=== PATIENT | female | born 1945 | race African-American/Black ===

== ENCOUNTER 2024-03-23 01:17 | Inpatient (IN) | payer MEDICARE, MEDICAID ==
[~2024-03-23] VITALS: Ht 157.5 cm; Wt 95.5 kg
[2024-03-23] MEDS ORDERED: MORPHINE SULFATE 4 MG/ML INJ (FOR IV/IM USE) IV STA (01:47)
[2024-03-23 02:47] LABS: BASOPHILS % 2.5 % (0.0-2.0); EOSINOPHILS % 3.2 % (0.0-5.0); HEMATOCRIT. 35.9 % (36.0-48.0); LYMPHOCYTES % 39.1 % (20.0-50.0); MEAN CORPUSCULAR HEMOGLOBIN 25.1 pg (28.0-32.0); MEAN CORPUSCULAR HGB CONC 30.7 g/dL (31.0-37.0); MEAN CORPUSCULAR VOLUME 81.8 fL (81.0-99.0); MEAN PLATELET VOLUME 8.2 fl (7.4-10.4); MONOCYTES % 11.1 % (2.0-8.0); NEUTROPHILS % 44.1 % (40.0-76.0); PLATELET 305 x1000/uL (130-400); RED BLOOD CELL COUNT 4.39 mill/uL (4.2-5.4); RED CELL DISTRIBUTION WIDTH 20.2 % (11.6-14.6)
[2024-03-23 02:57] LABS: CHLORIDE 105 mEq/L (98-107); POTASSIUM 3.5 mEq/L (3.5-5.1); SODIUM 142 mEq/L (136-145)
[2024-03-23 02:58] LABS: CALCIUM 8.8 mg/dL (8.7-10.4); CARBON DIOXIDE 34 mEq/L (21-32)
[2024-03-23 03:03] LABS: CREATININE 0.8 mg/dL (0.6-1.0); GLUCOSE 115 mg/dL (70-105); TROPONIN I HIGH SENSITIVITY 17 ng/L (3.0-34); UREA NITROGEN BLOOD 12 mg/dL (9-23)
[2024-03-23 03:06] LABS: D-DIMER 0.86 mg/L FEU (<0.50); INR 1.1
[2024-03-23] MEDS: ONDANSETRON HCL 4MG/2ML INJ IV STA (03:38)
[2024-03-23] MEDS: DILTIAZEM HCL 5MG/ML 5ML VIAL IV NR (03:38)
[2024-03-23] MEDS: MORPHINE SULFATE 4 MG/ML INJ (FOR IV/IM USE) IV NR (03:39)
[2024-03-23] MEDS: ONDANSETRON HCL 4MG/2ML INJ IV NR (03:39)
[2024-03-23 04:53] LABS: TROPONIN I HIGH SENSITIVITY 17 ng/L (3.0-34)
[2024-03-23] MEDS ORDERED: IPRATROPIUM/ALBUTEROL 0.5-3(2.5)MG/3ML NEB NEB PRN (09:15)
[2024-03-23] MEDS ORDERED: ONDANSETRON HCL 4MG/2ML INJ IV PRN (09:15)
[2024-03-23] MEDS: DIGOXIN 500MCG/2ML AMP IV NR ×2 (10:30→14:00)
[2024-03-23] MEDS: FUROSEMIDE 40MG/4ML VIAL IVP SCH (10:30)
[2024-03-23] MEDS: ENOXAPARIN 120MG/0.8ML SYR SUBCUT SCH (10:31)
[2024-03-23] MEDS: DILTIAZEM HCL 30MG TABLET PO SCH (10:31)
[2024-03-23] MEDS: ACETAMINOPHEN 325MG TABLET PO PRN (10:32)
[2024-03-23 15:30] VITALS: BP 136/74; PULSE 113; RESP 18; TEMP 36.6404
[2024-03-23 16:00] VITALS: BP 104/73; PULSE 67; RESP 17; TEMP 36.6696; O2SAT 100
[2024-03-23] MEDS: DIGOXIN 250MCG TABLET PO SCH (18:00)
[2024-03-23 20:00] VITALS: BP 135/79; PULSE 100; RESP 19; TEMP 36.61404; O2SAT 100
[2024-03-23] MEDS ORDERED: DEXTROSE 50% WATER 50ML SYRINGE IV PRN (20:00)
[2024-03-23] MEDS ORDERED: NALOXONE HCL 0.4MG/ML VIAL IV PRN (20:15)
[2024-03-23] MEDS: INSULIN LISPRO 100 UNITS/ML SUBCUT SCH (21:00)
[2024-03-23] MEDS: BLOOD SUGAR DIAGNOSTIC STRIP TEST SCH (21:32)
[2024-03-23] MEDS: TEMAZEPAM 15MG CAPSULE PO PRN (22:46)
[2024-03-23 22:50] LABS: HCG SCREEN NEGATIVE
[2024-03-23 22:53] LABS: CREATINE KINASE MB FRACTION 1.1 ng/mL (0.5-3.6)
[2024-03-24] VITALS: BP 127/87; PULSE 70; RESP 19; TEMP 36.33624; O2SAT 100
[2024-03-24 04:00] VITALS: BP 123/86; PULSE 79; RESP 20; TEMP 36.61404; O2SAT 99
[2024-03-24] MEDS: HYDROCODONE/ACETAMINOPHEN 5/325MG TABLET PO PRN (04:44)
[2024-03-24] MEDS: GUAIFENESIN/CODEINE 200-20MG/10ML UDC PO PRN (05:02)
[2024-03-24 08:00] VITALS: BP 115/91; PULSE 73; RESP 18; TEMP 36.28068; O2SAT 97
[2024-03-24] MEDS ORDERED: ASPIRIN 81MG TABLET PO SCH (09:00)
[2024-03-24] MEDS ORDERED: IOHEXOL-350 100 ML BOTTLE ONE (11:18)
[2024-03-24 12:00] VITALS: BP 131/71; PULSE 60; RESP 19; TEMP 35.72508; O2SAT 99
[2024-03-24 12:37] LABS: BASOPHILS % 2.8 % (0.0-2.0); HEMOGLOBIN. 10.9 g/dL (12.0-16.0); LYMPHOCYTES % 43.6 % (20.0-50.0); MEAN CORPUSCULAR HEMOGLOBIN 25.3 pg (28.0-32.0); MEAN CORPUSCULAR HGB CONC 31.1 g/dL (31.0-37.0); MEAN CORPUSCULAR VOLUME 81.6 fL (81.0-99.0); MEAN PLATELET VOLUME 8.9 fl (7.4-10.4); NEUTROPHILS % 42.6 % (40.0-76.0); PLATELET 339 x1000/uL (130-400); RED BLOOD CELL COUNT 4.28 mill/uL (4.2-5.4); RED CELL DISTRIBUTION WIDTH 20.5 % (11.6-14.6); WHITE BLOOD COUNT 6.4 x1000/uL (4.5-11.0)
[2024-03-24 12:38] LABS: CHLORIDE 102 mEq/L (98-107); POTASSIUM 3.6 mEq/L (3.5-5.1); SODIUM 141 mEq/L (136-145)
[2024-03-24 12:39] LABS: CARBON DIOXIDE 35 mEq/L (21-32)
[2024-03-24 12:40] LABS: CALCIUM 8.8 mg/dL (8.7-10.4)
[2024-03-24 12:44] LABS: CREATININE 0.7 mg/dL (0.6-1.0); GLUCOSE 86 mg/dL (70-105); UREA NITROGEN BLOOD 11 mg/dL (9-23)
[2024-03-24 12:45] LABS: CREATINE KINASE MB FRACTION 1.1 ng/mL (0.5-3.6); TROPONIN I HIGH SENSITIVITY 14 ng/L (3.0-34)
[2024-03-24 12:46] LABS: CREATINE KINASE 43 IU/L (34-145)
[2024-03-24] MEDS: FUROSEMIDE 20MG/2ML VIAL IVP SCH (14:08)
[2024-03-24 16:00] VITALS: BP 111/57; PULSE 60; RESP 18; TEMP 36.61404; O2SAT 98
[2024-03-24 20:00] VITALS: BP 137/52; PULSE 64; RESP 19; TEMP 36.55848; O2SAT 97
[2024-03-24] MEDS: POTASSIUM CHLORIDE 20MEQ/PACKET PO NR (21:29)
[2024-03-25] VITALS: BP 152/68; PULSE 60; RESP 19; TEMP 36.6696; O2SAT 97
[2024-03-25 04:00] VITALS: BP 148/70; PULSE 64; RESP 20; TEMP 36.50292; O2SAT 99
[2024-03-25 08:00] VITALS: BP 167/65; PULSE 61; RESP 18; TEMP 36.50292; O2SAT 100
[2024-03-25 09:18] LABS: CARBON DIOXIDE 30 mEq/L (21-32); CHLORIDE 103 mEq/L (98-107); POTASSIUM 4.6 mEq/L (3.5-5.1); SODIUM 139 mEq/L (136-145)
[2024-03-25 09:20] LABS: CALCIUM 9.2 mg/dL (8.7-10.4)
[2024-03-25] MEDS: DIPHENHYDRAMINE 25MG CAPSULE PO PRN (10:55)
[2024-03-25 11:16] LABS: CREATININE 0.8 mg/dL (0.6-1.0)
[2024-03-25 11:18] LABS: GLUCOSE 73 mg/dL (70-105); UREA NITROGEN BLOOD 10 mg/dL (9-23)
[2024-03-25 12:00] VITALS: BP 145/73; PULSE 61; RESP 18; TEMP 36.3918; O2SAT 100
[2024-03-25 16:00] VITALS: BP 145/73; PULSE 61; RESP 18; TEMP 36.44736; O2SAT 98
[2024-03-25] MEDS: FUROSEMIDE 40MG/4ML VIAL IVP SCH (17:30)
[2024-03-25 20:00] VITALS: BP 146/61; PULSE 63; RESP 20; TEMP 36.72516; O2SAT 96
[2024-03-26] VITALS: BP 142/67; PULSE 64; RESP 19; TEMP 36.55848; O2SAT 98
[2024-03-26 04:00] VITALS: BP 152/70; PULSE 63; RESP 18; TEMP 36.55848; O2SAT 98
[2024-03-26] MEDS ORDERED: ASPI-1160 PO (07:04)
[2024-03-26] MEDS ORDERED: DILT30TA3 PO (07:04)
[2024-03-26] MEDS ORDERED: APIX5TAB MT (07:04)
[2024-03-26] MEDS ORDERED: DIGO-28 PO (07:04)
[2024-03-26 08:00] VITALS: BP 154/70; PULSE 66; RESP 18; TEMP 36.78072; O2SAT 96
[2024-03-26] MEDS: FUROSEMIDE 40MG TABLET PO SCH (09:23)
[2024-03-26 12:00] VITALS: BP 141/62; PULSE 67; RESP 19; TEMP 37.16964; O2SAT 100
[2024-03-26 16:00] VITALS: BP 117/75; PULSE 64; RESP 18; TEMP 36.78072; O2SAT 100
[2024-03-27 08:00] VITALS: BP 154/72; PULSE 59; PULSE 60; RESP 18; TEMP 37.05852; O2SAT 100
[2024-03-27 12:00] VITALS: BP 153/68; PULSE 60; RESP 18; TEMP 36.33624; O2SAT 98
[2024-03-27 16:00] VITALS: BP 159/71; PULSE 63; RESP 19; TEMP 36.22512; O2SAT 97
[2024-03-27] MEDS: CLONIDINE 0.1MG TABLET PO PRN (17:02)
[2024-03-27 17:39] VITALS: BP 140/72; PULSE 62; TEMP 98.1; O2SAT 98
[2024-03-27] MEDS ORDERED: CARVEDILOL 3.125 MG TABLET PO SCH (21:00)
[2024-03-27] MEDS ORDERED: DIGOXIN 250MCG TABLET PO SCH (22:00)
== END 2024-03-27 18:30 | DRG 291 ==
LOC: ER 01:17 → 7EST 02:49 → EDBEDREQSVC 12:40
PROVIDERS: ADMIT Internal Medicine; ATTEND Internal Medicine
DX: I11.0 Hypertensive heart disease with heart failure (principal); I50.43 Acute on chronic combined systolic (congestive) and diastolic (congestive) heart failure; M48.54XA Collapsed vertebra, not elsewhere classified, thoracic region, initial encounter for fracture; I48.91 Unspecified atrial fibrillation; J44.9 Chronic obstructive pulmonary disease, unspecified; E11.9 Type 2 diabetes mellitus without complications; Z74.01 Bed confinement status; Z95.0 Presence of cardiac pacemaker
CPT/HCPCS: 36415; 71045; 71275; 80048; 82550; 82553; 82962; 83036; 83735; 83880; 84484; 84703; 85025; 85379; 86850; 86900; 93005; 93306; 93970; 99291; J1160; J1650; J1940; J2270; J2405; J3490; Q0163; Q9967